=== PATIENT | female | born 1995 | race Caucasian/White ===

== ENCOUNTER 2021-07-28 09:45 | Emergency (ER) | payer OTHER ==
[~2021-07-28] VITALS: Ht 162.6 cm; Wt 86.4 kg
[2021-07-28 11:59] VITALS: BP 128/78
== END 2021-07-28 12:02 | disposition home or self-care (01) ==
LOC: EMS 09:45
DX: S93.402A Sprain of unspecified ligament of left ankle, initial encounter (principal); W22.8XXA Striking against or struck by other objects, initial encounter; Y93.89 Activity, other specified; Y92.89 Other specified places as the place of occurrence of the external cause; Y99.8 Other external cause status
CPT/HCPCS: 29515; 99283

== ENCOUNTER 2022-10-21 09:27 | Emergency (ER) | payer OTHER ==
[~2022-10-21] VITALS: Ht 165.1 cm; Wt 86.4 kg
[2022-10-21 09:51] LABS: COVID AG,FIA SOURCE NASAL SWAB
[2022-10-21 10:14] LABS: INFLUENZA TYPE A NEGATIVE FOR TYPE A (NEGATIVE); INFLUENZA TYPE B NEGATIVE FOR TYPE B (NEGATIVE)
[2022-10-21 11:00] VITALS: BP 125/87
[2022-10-21] MEDS ORDERED: PENI500T2 PO (11:06)
== END 2022-10-21 11:16 | disposition home or self-care (01) ==
LOC: EMS 09:39
DX: J02.9 Acute pharyngitis, unspecified (principal); H10.9 Unspecified conjunctivitis; Z20.822 Contact with and (suspected) exposure to COVID-19
CPT/HCPCS: 87804; 99283

== ENCOUNTER 2024-02-24 12:21 | Emergency (ER) | payer MEDICAID, OTHER ==
[~2024-02-24] VITALS: Ht 162.6 cm; Wt 82.7 kg
[~2024-02-24 12:21] MED LIST: PENI500T2 PO
[2024-02-24 12:27] VITALS: BP 116/79; PULSE 92; RESP 16; TEMP 98.3; O2SAT 96
[2024-02-24] MEDS ORDERED: CEFU500T41 PO (12:49)
[2024-02-24] MEDS: IBUPROFEN 600 MG TABLET PO ONE (12:58)
[2024-02-24] MEDS: CEFUROXIME AXETIL 250 MG TABLET PO ONE (13:11)
== END 2024-02-24 13:40 | disposition home or self-care (01) ==
LOC: EMS 12:23
DX: L03.111 Cellulitis of right axilla (principal); Z90.721 Acquired absence of ovaries, unilateral
CPT/HCPCS: 99283

== ENCOUNTER 2024-04-30 00:44 | Emergency (ER) | payer SELFPAY ==
[~2024-04-30] VITALS: Ht 162.6 cm; Wt 81.8 kg
[~2024-04-30 00:44] MED LIST changes: +CEFU500T67 PO
[2024-04-30 00:46] VITALS: BP 123/76; PULSE 79; RESP 19; TEMP 98.6; O2SAT 99
== END 2024-04-30 03:09 | disposition left against medical advice (07) ==
LOC: EMS 00:45
DX: L02.411 Cutaneous abscess of right axilla (principal); Z53.21 Procedure and treatment not carried out due to patient leaving prior to being seen by health care provider